=== PATIENT | female | born 1950 | race Caucasian/White ===

== ENCOUNTER 2017-11-20 12:14 | Outpatient (CLI) | payer OTHER | END 2017-11-20 12:15 | disposition home or self-care (01) | LOC: BICMAMMO 12:14 | PROVIDERS: ATTEND Family Medicine | DX: Z12.31 Encounter for screening mammogram for malignant neoplasm of breast (principal); Z80.3 Family history of malignant neoplasm of breast; Z85.820 Personal history of malignant melanoma of skin | CPT/HCPCS: 77063; 77067 ==

== ENCOUNTER 2018-11-21 10:23 | Outpatient (CLI) | payer OTHER ==
--- NOTE | 2018-11-21 11:09 | MMO ---
Bilateral MAMMO Bilat Screen [facility]. CLINICAL HISTORY: Patient is 68 years old and is seen for screening. The patient has the following family history of breast cancer: paternal aunt. The patient has a history of melanoma at age 34. The patient has a history of right Excisional Biopsy in 1985 - Benign. VIEWS: The views performed were: bilateral craniocaudal with tomosynthesis; bilateral mediolateral oblique; and bilateral mediolateral oblique with tomosynthesis. FILMS COMPARED: The present examination has been compared to prior imaging studies performed at [facility] on 05/30/2014, 08/11/2015, 09/05/2016 and 11/21/2017. MAMMOGRAM FINDINGS: The breasts are almost entirely fat. There are no suspicious masses, suspicious calcifications, or new areas of architectural distortion. IMPRESSION: THERE IS NO MAMMOGRAPHIC EVIDENCE OF MALIGNANCY. A ROUTINE FOLLOW-UP MAMMOGRAM IN 1 YEAR IS RECOMMENDED. THE RESULTS OF THIS EXAM WERE SENT TO THE PATIENT. ACR BI-RADS Category 1 - Negative MAMMOGRAPHY NOTE: 1. A negative mammogram report should not delay a biopsy if a dominant of clinically suspicious mass is present. 2. Approximately 10% to 15% of breast cancers are not detected by mammography. 3. Adenosis and dense breasts may obscure an underlying neoplasm. Reported by: ZACH VALDEZ MD Electonically Signed: [id number]
== END 2018-11-21 10:24 | disposition home or self-care (01) ==
LOC: BICMAMMO 10:23
PROVIDERS: ATTEND Family Medicine
DX: Z12.31 Encounter for screening mammogram for malignant neoplasm of breast (principal); Z80.3 Family history of malignant neoplasm of breast
CPT/HCPCS: 77063; 77067

== ENCOUNTER 2020-04-21 13:50 | Outpatient (CLI) | payer MEDICARE ==
--- NOTE | 2020-04-21 14:25 | MMO ---
Bilateral MAMMO Bilat Screen [facility]. CLINICAL HISTORY: Patient is 69 years old and is seen for screening. The patient has the following family history of breast cancer: paternal aunt. The patient has a history of melanoma at age 34. The patient has a history of right Excisional Biopsy in 1985 - Benign. VIEWS: The views performed were: bilateral craniocaudal with tomosynthesis; bilateral mediolateral oblique with tomosynthesis; and cleavage view with tomosynthesis. FILMS COMPARED: The present examination has been compared to prior imaging studies performed at [facility] on 08/11/2015, 09/05/2016, 11/21/2017 and 11/21/2018. This study has been interpreted with the assistance of computer-aided detection. MAMMOGRAM FINDINGS: The breasts are almost entirely fat. There are benign appearing calcifications seen in the left breast. There are no suspicious masses, suspicious calcifications, or new areas of architectural distortion. IMPRESSION: THERE IS NO MAMMOGRAPHIC EVIDENCE OF MALIGNANCY. A ROUTINE FOLLOW-UP MAMMOGRAM IN 1 YEAR IS RECOMMENDED. THE RESULTS OF THIS EXAM WERE SENT TO THE PATIENT. ACR BI-RADS Category 2 - Benign finding MAMMOGRAPHY NOTE: 1. A negative mammogram report should not delay a biopsy if a dominant of clinically suspicious mass is present. 2. Approximately 10% to 15% of breast cancers are not detected by mammography. 3. Adenosis and dense breasts may obscure an underlying neoplasm. Reported by: RE KRAFT MD Electonically Signed: [id number]
== END 2020-04-21 13:51 | disposition home or self-care (01) ==
LOC: BICMAMMO 13:50
PROVIDERS: ATTEND Nurse Practitioner Family
DX: Z12.31 Encounter for screening mammogram for malignant neoplasm of breast (principal); Z85.820 Personal history of malignant melanoma of skin; Z80.3 Family history of malignant neoplasm of breast; Z91.89 Other specified personal risk factors, not elsewhere classified
CPT/HCPCS: 77063; 77067

== ENCOUNTER 2020-04-26 12:41 | Inpatient (IN) | payer MEDICARE ==
[~2020-04-26 12:41] MED LIST: Iopamidol-370 76% 500 ML 1 ML ONE
[2020-04-26] MEDS ORDERED: Acetaminophen 500 MG TAB ONE (13:08)
[2020-04-26 13:49] LABS: Hemoglobin 15.1 g/dL (12.0-16.0); Mean Corpuscular HGB CONC 33.5 g/dL (32.0-36.0); Mean Corpuscular Hemoglobin 29.2 pg (27.0-31.0); Mean Corpuscular Volume 87.3 fL (78.0-98.0); Mean Platelet Volume 8.2 fL (7.4-10.4); Platelet Count 255 thou/uL (130-400); Red Blood Cell (RBC) Count 5.18 mill/uL (4.20-5.40); White Blood Cell (WBC) Count 22.3 thou/uL (4.8-10.8)
[2020-04-26 13:53] LABS: ALT (SGPT) 22 U/L (8-55); AST (SGOT) 14 U/L (5-34); Albumin 3.9 g/dL (3.4-4.8); Alkaline Phosphatase 78 U/L (40-110); Anion Gap 15 mmol/L (10-20); BUN (Urea Nitrogen) 13 mg/dL (9.8-20.1); Bilirubin, Total 0.8 mg/dL (0.2-1.2); Calc. Creatinine Clearance 0 mL/min (70-130); Calcium 9.5 mg/dL (7.8-10.44); Carbon Dioxide 25 mmol/L (23-31); Chloride 101 mmol/L (98-107); Globulin 3.6 g/dL (2.4-3.5); Glucose 127 mg/dL (80-115); Lipase 17 U/L (8-78); Magnesium 2.2 mg/dL (1.6-2.6); Protein, Total 7.5 g/dL (6.0-8.3); Sodium 138 mmol/L (136-145)
[2020-04-26 14:03] LABS: Bilirubin Negative (Negative); Blood, Urine Trace (Negative); Glucose, Urine (Dipstick) Negative (Negative); Ketone, Urine Negative (Negative); Leukocyte Trace (Negative); Nitrite Negative (Negative); Protein, Urine (Dipstick) 30 mg/dL (Neg-Trace); Specific Gravity, Urine 1.025 (1.005-1.030)
[2020-04-26 14:11] LABS: Band 22 % (5-11); Lymphocytes 1 % (21-51); MDiff Complete? YES; Monocytes 11 % (0-10); Neutrophil 59 % (42-75); Platelet Morphology Comment Appears Adequate; Polychromasia SLIGHT = 2-3 cells (100X) (0-2/hpf); Reactive Lymphocytes 7 % (0-10)
--- NOTE | 2020-04-26 14:30 | RAD ---
EXAM: Chest one view: HISTORY: Dyspnea, cough, fever COMPARISON: 10/26/2018 FINDINGS: Heart size: Borderline heart size. Lungs: Clear of acute process. No evidence for confluent lobar pneumonia, significant pleural effusion, acute edema, or pneumothorax , or other significant acute process. IMPRESSION: No significant acute intrathoracic disease. Stable exam.
[2020-04-26 14:33] LABS: Clarity Clear (Clear)
[2020-04-26 14:39] LABS: Bacteria/HPF 1+ HPF (None Seen); RBC/HPF 0-3 HPF (0-3); Squamous Epithelial 0-3 HPF (0-3); WBC/HPF 0-3 HPF (0-3)
[2020-04-26] MEDS ORDERED: Potassium Chloride 20 MEQ TAB ONE (15:03)
[2020-04-26 15:12] LABS: SARS-CoV-2 NAA Rapid Test Not Detected (NotDetected)
--- NOTE | 2020-04-26 15:50 | CT ---
CT angiogram chest with IV contrast and 3-D imaging HISTORY: Cough. Dyspnea. Fever. FINDINGS:: There is good contrast opacification of the central pulmonary arteries and the thoracic ao rta with normal branching of the great vessels at the aortic arch. Peripheral pulmonary arteries incompletely opacified due to timing of bolus. Slightly enlarged, reactive appearing lymph nodes are scattered about the mediastinum, measuring up t o 1.9 cm the right paratracheal level and 1.8 cm at the right hilum. Dense infiltrate is present within the posterior basilar segment of the right lower lobe. Minimal ivonne ear scarring at the left lung base. No pleural fluid or pneumothorax. Small hiatal hernia. IMPRESSION : Right lower lobe pneumonia/infiltrate, with the appearance of a bacterial process rather than viral p neumonitis.
[2020-04-26] MEDS ORDERED: Cefepime 2 GM VIAL ONE (16:20)
[2020-04-26] MEDS ORDERED: Ondansetron PF 4 MG/2 ML Vial IVP PRN (16:22)
[2020-04-26] MEDS ORDERED: Guaifenesin DM 100-10/5 ML UDCUP PO PRN (16:22)
[2020-04-26] MEDS ORDERED: Ondansetron ODT 4 MG TAB PO PRN (16:22)
[2020-04-26] MEDS ORDERED: Aspirin 325 mg Enteric Coated Tablet PO SCH (16:30)
[2020-04-26] MEDS ORDERED: Vancomycin 1.5 GRAM/300 ML BAG 1.5 GM in Premix Bag 1 BAG IVPB SCH (16:30)
[2020-04-26] MEDS ORDERED: Azithromycin 500 MG in Sodium Chloride 0.9% 250 ML 250 ML IVPB SCH (17:00)
--- NOTE | 2020-04-26 17:28 | HP ---
PRIMARY CARE PHYSICIAN: Alba Rod. CHIEF COMPLAINT: Fever, cough, SOB, diarrhea. HISTORY OF PRESENT ILLNESS: The patient is a 69-year-old female with a past medical history significant for hypertension, who presents to the emergency department for the above complaint. The patient reports developing fever, T-max 102 Fahrenheit, nonproductive cough, mild shortness of breath, and intermittent diarrhea over the past 4 days. She reports that her diarrhea has improved, averaging 5 total loose stools over the past 4 days. She denies any abdominal pain, hematochezia/melena. She does report vomiting several times in the past couple of days. She denies hemoptysis. She denies any recent travel or antibiotics usage. She denies any ingestion of uncooked foods. She denies any wheezing and has no history of COPD/asthma. She has no history of DVT/PE. She is not on any hormone therapy. She does report being tested positive for COVID in October 2019. She was asymptomatic at that time. She denies any recent known COVID contacts. She denies any loss of smell or taste. She denies any body aches or general malaise. She denies any chest pain, heart palpitations, or lightheadedness. She denies any dyspnea on exertion, orthopnea, or swelling to her lower extremities. In the emergency department, the patient presented febrile with a temperature of 100.2, hypertensive, tachycardic with normal respirations and oxygen saturation. EKG sinus tachycardia, no ST elevations. D-dimer elevated at 1.90. CTA chest negative for PE. It did show right lower lobe pneumonia. Chest x-ray is negative for any acute process. Troponin indeterminate at 0.011. COVID and influenza negative. Blood and urine cultures are pending. WBCs 22.3. Lactic acid of 2.2. The patient was treated with vancomycin, cefepime and 1 L normal saline. She was given Tylenol 1 g and her potassium was replaced. PAST MEDICAL HISTORY: Hypertension. PAST SURGICAL HISTORY: 1. Bilateral total knee replacement. 2. Cholecystectomy. 3. C-spine fusion. 4. Melanoma, surgical excision. SURGICAL HISTORY: Breast biopsy. SOCIAL HISTORY: The patient lives with her family. She denies any history of illicit drug use, heavy alcohol intake or smoking. She is retired. She walks independently. FAMILY HISTORY: Contributory for [place], her brother in his 50s. ALLERGIES: NO KNOWN DRUG ALLERGIES. HOME MEDICATIONS: Lisinopril/HCTZ 20/12.5 two tabs p.o. q. day. REVIEW OF SYSTEMS: All review of systems are negative unless otherwise stated in HPI. PHYSICAL EXAMINATION: VITAL SIGNS: Temperature 100.2, blood pressure 132/61, pulse 87, respirations 19%, 94% on room air. CONSTITUTIONAL: Patient in no acute distress. Nontoxic in appearance. VITAL SIGNS: Within normal limits. HEAD: Atraumatic, normocephalic. EYES: PERRL. Extraocular muscles intact. Sclerae nonicteric. ENT: Oropharynx is clear. Uvula midline. Moist mucous membranes. No oral lesions. NECK: Full range of motion. No cervical spinous tenderness. No cervical adenopathy. RESPIRATORY/CHEST: Bilateral rales in the lower lobes. No wheezes or rhonchi. Respirations are even nonlabored. No acute distress. CARDIOVASCULAR: S1, S2 appreciated. No murmurs, rubs, or gallops. ABDOMEN: Soft, nontender, nondistended. Active bowel sounds. No guarding. No rigidity. No rebound. Negative Rovsing sign. Negative Roman sign. BACK: Full range of motion. No central spinous tenderness. No CVA tenderness. EXTREMITIES: Upper extremities are full range of motion, normal strength, sensation intact. Palpable radial pulses. Lower extremities, full range of motion. Normal strength. Sensation intact. Palpable pedal pulses, no swelling. NEUROLOGIC: GCS of 15. No focal motor deficits. PSYCHIATRIC: Denies suicidal or homicidal ideation. LABORATORY DATA AND DIAGNOSTIC STUDIES: CTA of the chest, impression, right lower lobe pneumonia/infiltrate with the appearance of bacterial process rather than a viral pneumonitis. COVID negative, influenza negative. UA, 1+ bacteria, trace leukocyte esterase, no nitrites, no pus, no epithelial cells. WBC 22.3, hemoglobin 15.1, hematocrit 45.2, platelets 255. Coags, D-dimer was 1.90. Chemistry; sodium 138, potassium 3.0, chloride 101, carbon dioxide 25, BUN 13, creatinine 0.82, glucose 127. Lactic acid 2.2, total bilirubin 0.8, AST 14, ALT 22, alkaline phosphatase 78. Initial troponin 0.011. Lactic acid 2.2. Lipase 17. Chest x-ray was negative for any acute process. IMPRESSION: 1. Right lower lobe pneumonia. 2. Sepsis. 3. Indeterminate troponin. 4. Hypokalemia. 5. Nausea, vomiting, diarrhea. 6. Hypertension, chronic. PLAN: A 69-year-old female with a past medical history of hypertension, presents for fever/cough/SOB/diarrhea. Admit to medical floor, observation status. Expected length of stay less than 2 midnights. The patient meets sepsis criteria, presenting with a heart rate of 104 and febrile. CTA positive for right lower lobe pneumonia. We will treat for community-acquired pneumonia, starting azithromycin and Rocephin. We will add guaifenesin p.r.n. for cough. Supplemental oxygen as needed. The patient did receive 1 L of normal saline in the ED and is normotensive at this time. We will not continue IV fluid resuscitation at this time. We will encourage oral intake. Blood cultures and urine cultures are pending. In terms of her indeterminate troponin, likely secondary to demand ischemia, heart score of 4. We will trend troponins. Check BNP and start aspirin at this time. We will check a fasting lipid profile. In terms of her hypokalemia, mild, presented with a potassium of 3.0. Magnesium 2.2 within normal limits. She was replaced with 60 mEq use in the emergency department. We will recheck level in the a.m. Zofran p.r.n. In terms of hypertension, chronic. The patient is normotensive at this time. She reports that she did not take her lisinopril/ hydrochlorothiazide at home for the past 2 days. She did take it this a.m. We will restart her home medications. Lovenox for deep venous thrombosis prophylaxis. No gastrointestinal prophylaxis. Code status is full code. Discussed with attending physician, Dr. Mccarthy. Job ID: [id number]
[2020-04-26 18:15] VITALS: BMI 38.9
[2020-04-26 20:17] LABS: Troponin I Less than 0.010 ng/mL (< 0.028)
[2020-04-26] MEDS: Azithromycin 500 MG in Sodium Chloride 0.9% 250 ML 250 ML IVPB SCH (20:41)
[2020-04-26 22:41] LABS: Troponin I 0.013 ng/mL (< 0.028)
[2020-04-27 07:24] LABS: Anion Gap 11 mmol/L (10-20); BUN (Urea Nitrogen) 8 mg/dL (9.8-20.1); Calc. Creatinine Clearance 143 mL/min (70-130); Calcium 8.2 mg/dL (7.8-10.44); Carbon Dioxide 27 mmol/L (23-31); Cardiac Risk 4.2 (Less than 4.5); Chloride 104 mmol/L (98-107); Cholesterol 118 mg/dl (< 200 Desired); Glucose 89 mg/dL (80-115); HDL Cholesterol 28 mg/dL (>60 Neg Risk); LDL Cholesterol, Calculated 74 mg/dL; Potassium 3.2 mmol/L (3.5-5.1); Sodium 139 mmol/L (136-145); Triglycerides 81 mg/dL (Less than 150)
[2020-04-27] MEDS ORDERED: Potassium Chloride 20 MEQ TAB PO SCH ×2 (08:00→16:00)
[2020-04-27 08:22] LABS: #Eosinphils 0.1 thou/uL (0.0-0.7); #Lymphocytes 2.2 thou/uL (1.20-3.40); #Neutrophils 8.8 thou/uL (1.40-6.50); %Basophils 0.3 % (0.0-1.0); %Eosinophils 0.7 % (0.0-10.0); %Lymphocytes 18.4 % (21.0-51.0); %Monocytes 8.5 % (0.0-10.0); %Neutrophils 72.2 % (42.0-75.0); Hemoglobin 12.5 g/dL (12.0-16.0); Mean Corpuscular Hemoglobin 29.1 pg (27.0-31.0); Mean Corpuscular Volume 88.1 fL (78.0-98.0); Platelet Count 207 thou/uL (130-400); RBC Distribution Width 11.8 % (11.5-14.5); Red Blood Cell (RBC) Count 4.29 mill/uL (4.20-5.40); White Blood Cell (WBC) Count 12.1 thou/uL (4.8-10.8)
[2020-04-27] MEDS: Lisinopril/Hydrochlorothiazide 20 mg/12.5 mg Tablet PO SCH (08:39)
[2020-04-27] MEDS: Aspirin 81 mg Enteric Coated Tablet PO SCH (08:39)
[2020-04-27] MEDS: Enoxaparin Sodium 40 MG/0.4 ML SYRINGE SC SCH (08:40)
[2020-04-27] MEDS ORDERED: FLU VACC QS2020-21(65YR UP)/PF 240 MCG/0.7 ML SYRINGE IM ONE (09:00)
--- NOTE | 2020-04-27 09:47 | PDOC.HOSPP ---
- Subjective Encounter Date: 04/27/20 Encounter Time: 09:45 Subjective: Patient seen and examined. No new complaints. No overnight events. Patient says she feels great. Denies cough, SOB, wheezing. Denies chest pain, heart palpitations, abdominal pain, N/V/D. Denies any dysuria or fever. Discussed improvement with WBC count and negative cardiac enzymes. Blood/Urine Cx pending. - Objective Vital Signs & Weight: Vital Signs (12 hours) Temp Pulse Resp BP BP Pulse Ox 04/27/20 08:39 81 04/27/20 08:11 99.0 F 81 20 134/70 96 04/27/20 00:20 98.8 F 88 20 132/84 95 Weight Weight 248 lb 14.43 oz I&O: 04/26/20 04/27/20 04/28/20 06:59 06:59 06:59 Intake Total 1000 Balance 1000 Result Diagrams: 04/27/20 06:48 04/27/20 06:48 Hospitalist ROS - Review of Systems Constitutional: denies: fever, chills Respiratory: denies: cough, shortness of breath Cardiovascular: denies: chest pain, palpitations, edema, light headedness Gastrointestinal: denies: nausea, vomiting, abdominal pain Neurological: denies: weakness All other systems reviewed; all pertinent +/- noted in HPI/Subj - Medication Medications: Active Medications Generic Name Dose Route Start Last Admin Trade Name Freq PRN Reason Stop Dose Admin Aspirin 81 mg 04/27/20 09:00 04/27/20 08:39 Aspirin 81 Mg Enteric Coated Tablet PO 81 mg DAILY SARIKA Administration Enoxaparin Sodium 40 mg 04/27/20 09:00 04/27/20 08:40 Enoxaparin Sodium 40 Mg/0.4 Ml Syringe SC 40 mg 0900 SARIKA Administration Lisinopril/HCTZ 2 tab 04/27/20 09:00 04/27/20 08:39 Lisinopril/Hydrochlorothiazide 20 Mg/12.5 Mg Tablet PO 2 tab DAILY SARIKA Administration Azithromycin 500 mg/ Sodium 250 mls @ 250 mls/hr 04/26/20 20:00 04/26/20 20:41 Chloride IVPB 250 mls 2000 SARIKA Administration Potassium Chloride 40 meq 04/27/20 08:00 04/27/20 08:39 Potassium Chloride 20 Meq Tab PO 04/27/20 10:00 40 meq NOW SARIKA Administration - Exam General Appearance: NAD, awake alert. negative: ill appearing Heart: RRR, no murmur, no gallops, no rubs, normal peripheral pulses Respiratory: CTAB, no wheezes, no rales, no ronchi, normal chest expansion, no tachypnea Gastrointestinal: soft, non-tender, normal bowel sounds, no guarding, no rigidity Psychiatric: normal affect, A&O x 3 Hosp A/P (1) Pneumonia Code(s): J18.9 - PNEUMONIA, UNSPECIFIED ORGANISM Status: Acute (2) Sepsis Code(s): A41.9 - SEPSIS, UNSPECIFIED ORGANISM Status: Acute (3) Elevated troponin Code(s): R77.8 - OTHER SPECIFIED ABNORMALITIES OF PLASMA PROTEINS Status: Acute (4) Hypokalemia Code(s): E87.6 - HYPOKALEMIA Status: Acute (5) Nausea vomiting and diarrhea Code(s): R11.2 - NAUSEA WITH VOMITING, UNSPECIFIED; R19.7 - DIARRHEA, UNSPECIFIED Status: Acute (6) HTN (hypertension) Code(s): I10 - ESSENTIAL (PRIMARY) HYPERTENSION Status: Chronic - Plan -WBC trending down from 22.3 to 12.1 -Continue Azith and rocephin IVPB -Blood/Urine CX pending -Troponins flat, did not follow physiologic pattern for ACS, non ishcemic elevation -K improved to 3.3, replace with 40mEq x 2, recheck in am - mag level WNL -N/V/D resolved.
[2020-04-27] MEDS: cefTRIAXone\\ROCEPHIN 1 GM in Sodium Chloride 0.9% 100 ML IVPB SCH (14:52)
[2020-04-27] MEDS: Acetaminophen 325 MG TAB PO PRN (16:57)
[2020-04-27] MEDS: Azithromycin 500 MG in Sodium Chloride 0.9% 250 ML 250 ML IVPB SCH (19:39)
[2020-04-28 07:18] LABS: #Basophils 0.1 thou/uL (0.0-0.2); #Eosinphils 0.1 thou/uL (0.0-0.7); #Lymphocytes 2.1 thou/uL (1.20-3.40); #Monocytes 1.2 thou/uL (0.11-0.59); %Basophils 0.6 % (0.0-1.0); %Lymphocytes 18.1 % (21.0-51.0); %Monocytes 10.3 % (0.0-10.0); %Neutrophils 70.1 % (42.0-75.0); Hemoglobin 12.8 g/dL (12.0-16.0); Mean Corpuscular HGB CONC 33.5 g/dL (32.0-36.0); Mean Corpuscular Hemoglobin 29.5 pg (27.0-31.0); Mean Corpuscular Volume 88.2 fL (78.0-98.0); Mean Platelet Volume 7.9 fL (7.4-10.4); Platelet Count 252 thou/uL (130-400); RBC Distribution Width 11.7 % (11.5-14.5); Red Blood Cell (RBC) Count 4.33 mill/uL (4.20-5.40); White Blood Cell (WBC) Count 11.4 thou/uL (4.8-10.8)
[2020-04-28 07:38] LABS: Anion Gap 14 mmol/L (10-20); BUN (Urea Nitrogen) 8 mg/dL (9.8-20.1); Calc. Creatinine Clearance 141 mL/min (70-130); Calcium 8.6 mg/dL (7.8-10.44); Carbon Dioxide 25 mmol/L (23-31); Chloride 103 mmol/L (98-107); Glucose 96 mg/dL (80-115); Potassium 4.1 mmol/L (3.5-5.1); Sodium 138 mmol/L (136-145)
[2020-04-28] MEDS: Lisinopril/Hydrochlorothiazide 20 mg/12.5 mg Tablet PO SCH (08:03)
[2020-04-28] MEDS: Aspirin 81 mg Enteric Coated Tablet PO SCH (08:03)
[2020-04-28] MEDS: Enoxaparin Sodium 40 MG/0.4 ML SYRINGE SC SCH (08:04)
--- NOTE | 2020-04-28 11:05 | PDOC.HOSPP ---
- Subjective Encounter Date: 04/28/20 Encounter Time: 11:00 Subjective: Patient states she is feeling well and denies any complaints except a cough. States the Robitussin has not helped much. It tends to be worse at night, is nonproductive and denies any associated sob. States her breathing was never an issue since before she came in. She had been sick with N/V/D which prompted her to come in to get tested for COVID. CXR was clear however CTA showed pneumonia. She denies any fevers, chills or sweats. No headaches or dizziness. Has been tolerating PO intake. No further n/v/d since admission. Has not had any dysuria. All other review of systems are negative. - Objective Vital Signs & Weight: Vital Signs (12 hours) Temp Pulse Resp BP Pulse Ox 04/28/20 08:15 99.5 F 89 20 142/62 H 95 04/28/20 08:03 90 Weight Admit Weight 248 lb 14.43 oz Weight 248 lb 14.43 oz I&O: 04/27/20 04/28/20 04/29/20 06:59 06:59 06:59 Intake Total 1000 1950 Balance 1000 1950 Result Diagrams: 04/28/20 06:59 04/28/20 06:59 Hospitalist ROS - Medication Medications: Active Medications Generic Name Dose Route Start Last Admin Trade Name Freq PRN Reason Stop Dose Admin Acetaminophen 650 mg 04/26/20 16:22 04/27/20 16:57 Acetaminophen 325 Mg Tab PO 650 mg Q4H PRN Administration Headache/Fever/Mild Pain (1-3) Aspirin 81 mg 04/27/20 09:00 04/28/20 08:03 Aspirin 81 Mg Enteric Coated Tablet PO 81 mg DAILY SARIKA Administration Enoxaparin Sodium 40 mg 04/27/20 09:00 04/28/20 08:04 Enoxaparin Sodium 40 Mg/0.4 Ml Syringe SC 40 mg 0900 SARIKA Administration Guaifenesin/Dextromethorphan 15 ml 04/26/20 16:22 04/27/20 19:38 Guaifenesin Dm 100-10/5 Ml Udcup PO 15 ml Q4H PRN Administration Cough Lisinopril/HCTZ 2 tab 04/27/20 09:00 04/28/20 08:03 Lisinopril/Hydrochlorothiazide 20 Mg/12.5 Mg Tablet PO 2 tab DAILY SARIKA Administration Ceftriaxone Sodium 1 gm/ 100 mls @ 200 mls/hr 04/27/20 15:00 04/27/20 14:52 Sodium Chloride IVPB 100 mls Q24HR SARIKA Administration Azithromycin 500 mg/ Sodium 250 mls @ 250 mls/hr 04/26/20 20:00 04/27/20 19:39 Chloride IVPB 250 mls 2000 SARIKA Administration Sodium Chloride 10 ml 04/26/20 16:22 04/27/20 19:39 Flush - Normal Saline 10 Ml Syringe IVF 10 ml PRN PRN Administration Saline Flush - Exam General Appearance: NAD, awake alert Eye: PERRL, anicteric sclera ENT: normocephalic atraumatic, no oropharyngeal lesions, moist mucosa Neck: supple, symmetric, no lymphadenopathy Heart: RRR, no murmur, no gallops, no rubs, normal peripheral pulses Respiratory: CTAB, no wheezes, no rales, no ronchi, normal chest expansion Gastrointestinal: soft (obese), non-tender, non-distended, normal bowel sounds, no guarding, no rigidity Extremities: no edema Skin: normal turgor, no lesions, no rashes Neurological: cranial nerve grossly intact, normal sensation to touch, no weakness Musculoskeletal: normal tone, normal strength, no muscle wasting Psychiatric: normal affect, normal behavior, A&O x 3 Hosp A/P (1) Pneumonia Code(s): J18.9 - PNEUMONIA, UNSPECIFIED ORGANISM Status: Acute (2) Hypokalemia Code(s): E87.6 - HYPOKALEMIA Status: Resolved (3) Nausea vomiting and diarrhea Code(s): R11.2 - NAUSEA WITH VOMITING, UNSPECIFIED; R19.7 - DIARRHEA, UNSPECIFIED Status: Resolved (4) HTN (hypertension) Code(s): I10 - ESSENTIAL (PRIMARY) HYPERTENSION Status: Chronic - Plan Continue IV antibiotics Monitor O2 sats Blood cultures pending (fever yesterday) UA/UCx negative Will add Tessalon for cough Monitor electrolytes and replace as needed Monitor BP and continue home meds DVT Prophylaxis: Lovenox CODE STATUS: FULL
[2020-04-28] MEDS: cefTRIAXone\\ROCEPHIN 1 GM in Sodium Chloride 0.9% 100 ML IVPB SCH (15:11)
[2020-04-28] MEDS: Azithromycin 500 MG in Sodium Chloride 0.9% 250 ML 250 ML IVPB SCH (19:51)
[2020-04-28] MEDS ORDERED: Benzonatate 100 MG CAP PO PRN (22:59)
[2020-04-29 07:05] LABS: #Basophils 0.1 thou/uL (0.0-0.2); #Eosinphils 0.2 thou/uL (0.0-0.7); #Lymphocytes 2.4 thou/uL (1.20-3.40); #Monocytes 1.3 thou/uL (0.11-0.59); #Neutrophils 7.3 thou/uL (1.40-6.50); %Basophils 0.7 % (0.0-1.0); %Eosinophils 1.8 % (0.0-10.0); %Lymphocytes 21.3 % (21.0-51.0); %Monocytes 11.4 % (0.0-10.0); %Neutrophils 64.8 % (42.0-75.0); Hemoglobin 12.8 g/dL (12.0-16.0); Mean Corpuscular HGB CONC 32.9 g/dL (32.0-36.0); Mean Corpuscular Volume 88.3 fL (78.0-98.0); Mean Platelet Volume 7.5 fL (7.4-10.4); Platelet Count 260 thou/uL (130-400); RBC Distribution Width 11.8 % (11.5-14.5); Red Blood Cell (RBC) Count 4.39 mill/uL (4.20-5.40); White Blood Cell (WBC) Count 11.2 thou/uL (4.8-10.8)
[2020-04-29 07:19] LABS: Lactic Acid 0.7 mmol/L (0.5-2.2)
[2020-04-29 07:22] LABS: ALT (SGPT) 23 U/L (8-55); AST (SGOT) 21 U/L (5-34); Albumin 3.1 g/dL (3.4-4.8); Alkaline Phosphatase 69 U/L (40-110); Anion Gap 14 mmol/L (10-20); BUN (Urea Nitrogen) 8 mg/dL (9.8-20.1); Bilirubin, Total 0.5 mg/dL (0.2-1.2); CRP (Inflammatory) 9.42 mg/dL (= or < 0.5); Calc. Creatinine Clearance 147 mL/min (70-130); Calcium 8.4 mg/dL (7.8-10.44); Carbon Dioxide 27 mmol/L (23-31); Chloride 101 mmol/L (98-107); Globulin 3.1 g/dL (2.4-3.5); Glucose 92 mg/dL (80-115); Magnesium 2.1 mg/dL (1.6-2.6); Potassium 3.6 mmol/L (3.5-5.1); Protein, Total 6.2 g/dL (6.0-8.3); Sodium 138 mmol/L (136-145)
[2020-04-29] MEDS: Enoxaparin Sodium 40 MG/0.4 ML SYRINGE SC SCH (08:31)
[2020-04-29] MEDS: Aspirin 81 mg Enteric Coated Tablet PO SCH (08:32)
[2020-04-29] MEDS: Lisinopril/Hydrochlorothiazide 20 mg/12.5 mg Tablet PO SCH (08:32)
[2020-04-29] MEDS ORDERED: Lisinopril/Hydrochlorothiazide 20 mg/12.5 mg Tablet PO SCH (09:46)
[2020-04-29] MEDS: Acetaminophen 325 MG TAB PO PRN (10:45)
[2020-04-29 11:56] VITALS: BP 129/60; TEMP 98
--- NOTE | 2020-04-29 18:25 | PDOC.DS.DS ---
Provider - Provider Date of Admission: 04/28/20 11:11 Date of Discharge: 04/29/20 Admitting Provider: Lyle Mccarthy MD Primary Care Physician: [facility] Course - Hospital Course Hospital Course: Patient is a very pleasant 69-year-old female who initially presented to the hospital with fever cough. She was noted to have pneumonia to her right lower lobe. Patient was Covid positive a few months ago. Patient has been up walking around without any issues. I will discharge her home to follow-up with her primary care doctor Resuscitation Status: 04/26/20 16:22 Resuscitation Status Routine Co-Sign Provider: Resuscitation Status: FULL: Full Resuscitation Discussed with: patient - Labs Lab Results: 04/29/20 06:47 04/29/20 06:47 Abnormal Lab Results - Last 48 hrs 04/28/20 06:59: BUN 8 L 04/28/20 06:59: WBC 11.4 H, Lymphocytes % 18.1 L, Monocytes % 10.3 H, Ne utrophils # 8.0 H, Monocytes # 1.2 H 04/29/20 06:47: BUN 8 L, C-Reactive Protein 9.42 H, Albumin 3.1 L, Albumin/Globulin Ratio 1.0 L 04/29/20 06:47: WBC 11.2 H, Monocytes % 11.4 H, Neutrophils # 7.3 H, Monocytes # 1.3 H Microbiology - Entire Visit 04/26/20 14:51 Venous blood - Right Hand Blood Culture - Preliminary NO GROWTH AT 48 HOURS 04/26/20 14:51 Venous blood - Left Arm Blood Culture - Preliminary NO GROWTH AT 48 HOURS 04/26/20 13:22 Urine voided Urine Culture - Final - Physical Exam Vitals: Vital Signs (12 hours) Temp Pulse Resp BP Pulse Ox 04/29/20 11:55 98.0 F 80 20 129/60 95 04/29/20 08:32 83 04/29/20 08:00 99.1 F 83 20 176/77 H 92 L Weight Admit Weight 248 lb 14.43 oz Weight 248 lb 14.43 oz Physical Exam: The patient was seen and examined on the day of discharge. Problem - Discharge Plan Assessment: 1. Community-acquired pneumonia #2 shortness of breath Plan - Discharge Medications Prescriptions: Saccharomyces boulardii [Florastor] 250 mg PO DAILY #30 cap Levofloxacin [Levaquin] 750 mg PO DAILY #13 tab Home Medications: Medication Instructions Recorded Confirmed Type Cyanocobalamin/Folic AC/Vit B6 1 tab PO DAILY 04/26/20 04/26/20 History [Folplex 2.2] Lisinopril/Hydrochlorothiazide 1 tab PO DAILY 04/26/20 04/26/20 History [Lisinopril-Hctz 20-12.5 mg Tab] Levofloxacin [Levaquin] 750 mg PO DAILY #13 tab 04/29/20 Rx Saccharomyces boulardii [Florastor] 250 mg PO DAILY #30 cap 04/29/20 Rx Allergies: No Known Drug Allergies Allergy (Verified 04/27/20 18:56) PER ER RECORDS - Discharge Instructions Discharge Instructions:: follow up with your primary care doctor. Activity:: Activity as Tolerated Nourishment:: Heart Healthy Diet - Follow up Plan Referrals: [facility] [Primary Care Provider] - (follow up with PCP within one week) Disposition: HOME Quality - Care Measures CORE MEASURES:: N/A
[2020-04-30] MEDS ORDERED: Stress 600 With Zinc 1 TAB PO SCH (09:00)
== END 2020-04-29 13:15 | disposition home or self-care (01) | DRG 871 ==
LOC: ERS 12:41 → 3SE 15:52 → OBSVTOIN 04-28 11:11
PROVIDERS: ADMIT Internal Medicine; ATTEND Internal Medicine
DX: A41.9 Sepsis, unspecified organism (principal); J18.9 Pneumonia, unspecified organism; I24.8 Other forms of acute ischemic heart disease; I10 Essential (primary) hypertension; Z79.899 Other long term (current) drug therapy; Z98.890 Other specified postprocedural states; Z90.49 Acquired absence of other specified parts of digestive tract; Z96.653 Presence of artificial knee joint, bilateral; Z20.822 Contact with and (suspected) exposure to COVID-19; Z86.16 Personal history of COVID-19
CPT/HCPCS: 0240U; 36415; 71045; 71275; 80048; 80053; 80061; 81003; 81015; 83605; 83690; 83735; 83880; 84443; 84484; 85025; 85379; 86140; 87040; 87086; 90471; 90662; 90732; 93005; 96365; 96366; 96367; 96372; 96375; G0008; G0009; G0378; J0456; J0692; J0696; J1650; J3370; J3490; J7050; Q9967

== ENCOUNTER 2020-08-22 12:39 | Inpatient (IN) | payer MEDICARE ==
[2020-08-22] MEDS ORDERED: Pantoprazole 40 MG VIAL ONE (13:27)
[2020-08-22 13:56] LABS: Hemoglobin 14.1 g/dL (12.0-16.0); Mean Corpuscular HGB CONC 35.7 g/dL (32.0-36.0); Mean Corpuscular Hemoglobin 30.3 pg (27.0-31.0); Mean Platelet Volume 10.2 fL (7.4-10.4); Platelet Count 101 thou/uL (130-400); RBC Distribution Width 12.1 % (11.5-14.5); Red Blood Cell (RBC) Count 4.65 mill/uL (4.20-5.40); White Blood Cell (WBC) Count 5.5 thou/uL (4.8-10.8)
[2020-08-22 14:13] LABS: Band 26 % (5-11); Eosinophils 1 % (0-10); Lymphocytes 17 % (21-51); MDiff Complete? YES; Metamyelocyte 1 % (0-0); Monocytes 10 % (0-10); Neutrophil 41 % (42-75); Platelet Morphology Comment Appears Decreased; RBC Morphology Normal; Reactive Lymphocytes 3 % (0-10)
[2020-08-22 14:15] LABS: ALT (SGPT) 38 U/L (8-55); AST (SGOT) 48 U/L (5-34); Albumin 3.3 g/dL (3.4-4.8); Alkaline Phosphatase 69 U/L (40-110); Anion Gap 11 mmol/L (10-20); BUN (Urea Nitrogen) 11 mg/dL (9.8-20.1); Bilirubin, Total 0.7 mg/dL (0.2-1.2); CK (CPK) 52 U/L (29-168); Calc. Creatinine Clearance 0 mL/min (70-130); Calcium 8.4 mg/dL (7.8-10.44); Carbon Dioxide 27 mmol/L (23-31); Chloride 104 mmol/L (98-107); Globulin 2.5 g/dL (2.4-3.5); Glucose 107 mg/dL (80-115); Lipase 30 U/L (8-78); Potassium 3.3 mmol/L (3.5-5.1); Protein, Total 5.8 g/dL (5.8-8.1); Sodium 139 mmol/L (136-145)
[2020-08-22 14:18] LABS: CKMB 0.5 ng/mL (0-6.6)
[2020-08-22 15:35] LABS: Bacteria/HPF None Seen HPF (None Seen); Bilirubin Negative (Negative); Blood, Urine 1+ (Negative); Clarity Clear (Clear); Glucose, Urine (Dipstick) Normal (Negative); Ketone, Urine Negative (Negative); Leukocyte Negative Leu/uL (Negative); Mucous/LPF 1+ LPF (<2+); Nitrite Negative (Negative); Protein, Urine (Dipstick) 20 mg/dL (Neg-Trace); RBC/HPF 0-3 HPF (0-3); Specific Gravity, Urine 1.018 (1.002-1.036); Urobilinogen Normal mg/dL (Less than 2)
[2020-08-22] MEDS ORDERED: Cefepime 2 GM VIAL ONE (15:54)
[2020-08-22] MEDS ORDERED: Potassium Chloride 20 MEQ TAB ONE (16:27)
[2020-08-22] MEDS ORDERED: Vancomycin 1 GM/200 ML BAG ONE (16:50)
[2020-08-22] MEDS ORDERED: Guaifenesin DM 100-10/5 ML UDCUP PO PRN (17:40)
[2020-08-22] MEDS ORDERED: Ondansetron ODT 4 MG TAB PO PRN (17:40)
[2020-08-22] MEDS ORDERED: Ondansetron PF 4 MG/2 ML Vial IVP PRN (17:40)
[2020-08-22] MEDS ORDERED: Acetaminophen 650 MG Suppository PR PRN (17:40)
[2020-08-22 18:30] VITALS: BMI 39.1
[2020-08-22 19:33] LABS: Troponin I 0.015 ng/mL (< 0.028)
[2020-08-22] MEDS: Acetaminophen 325 MG TAB PO PRN (19:50)
[2020-08-22] MEDS ORDERED: Vancomycin 1 GM in Premix Bag 1 BAG IVPB SCH (20:00)
[2020-08-22 21:19] LABS: Troponin I 0.012 ng/mL (< 0.028)
[2020-08-23 00:31] LABS: SARS-CoV-2 PCR by NAA Not Detected (NotDetected)
[2020-08-23] MEDS: Cefepime 2 GM in Sodium Chloride 0.9% 100 ML IVPB SCH ×2 (04:10→17:16)
[2020-08-23 06:08] LABS: Anion Gap 11 mmol/L (10-20); BUN (Urea Nitrogen) 17 mg/dL (9.8-20.1); Calc. Creatinine Clearance 92 mL/min (70-130); Carbon Dioxide 23 mmol/L (23-31); Chloride 106 mmol/L (98-107); Glucose 100 mg/dL (80-115); Potassium 3.6 mmol/L (3.5-5.1); Sodium 136 mmol/L (136-145)
[2020-08-23 06:21] LABS: Band 19 % (5-11); Eosinophils 1 % (0-10); Lymphocytes 19 % (21-51); MDiff Complete? YES; Mean Corpuscular HGB CONC 34.4 g/dL (32.0-36.0); Mean Corpuscular Hemoglobin 29.3 pg (27.0-31.0); Mean Corpuscular Volume 85.3 fL (78.0-98.0); Mean Platelet Volume 11.8 fL (7.4-10.4); Monocytes 9 % (0-10); Neutrophil 40 % (42-75); Platelet Count 73 thou/uL (130-400); Platelet Morphology Comment Appears Decreased; RBC Distribution Width 12.1 % (11.5-14.5); Reactive Lymphocytes 12 % (0-10); Red Blood Cell (RBC) Count 4.11 mill/uL (4.20-5.40)
[2020-08-23] MEDS: Vancomycin 1 GM in Premix Bag 1 BAG IVPB SCH ×2 (08:39→20:01)
[2020-08-23] MEDS: Saccharomyces boulardii 250 MG CAP PO SCH (08:39)
[2020-08-23] MEDS: Lisinopril/Hydrochlorothiazide 20 mg/12.5 mg Tablet PO SCH (08:40)
[2020-08-23] MEDS ORDERED: Enoxaparin Sodium 40 MG/0.4 ML SYRINGE SC SCH (09:00)
[2020-08-23] MEDS ORDERED: Lisinopril/Hydrochlorothiazide 20 mg/12.5 mg Tablet PO SCH (09:00)
[2020-08-23] MEDS: Acetaminophen 325 MG TAB PO PRN (21:31)
[2020-08-24] MEDS: Cefepime 2 GM in Sodium Chloride 0.9% 100 ML IVPB SCH ×2 (04:03→16:33)
[2020-08-24] MEDS: Acetaminophen 325 MG TAB PO PRN (07:07)
[2020-08-24] MEDS: Lisinopril/Hydrochlorothiazide 20 mg/12.5 mg Tablet PO SCH (09:25)
[2020-08-24 09:26] LABS: Vancomycin, Trough 19.8 ug/mL
[2020-08-24] MEDS: Saccharomyces boulardii 250 MG CAP PO SCH (09:26)
[2020-08-24] MEDS: Vancomycin 1 GM in Premix Bag 1 BAG IVPB SCH (12:12)
[2020-08-24 13:42] LABS: Hemoglobin 11.7 g/dL (12.0-16.0); Mean Corpuscular HGB CONC 34.3 g/dL (32.0-36.0); Mean Corpuscular Hemoglobin 29.2 pg (27.0-31.0); Mean Corpuscular Volume 84.9 fL (78.0-98.0); Mean Platelet Volume 12.7 fL (7.4-10.4); Platelet Count 79 thou/uL (130-400); RBC Distribution Width 11.9 % (11.5-14.5); White Blood Cell (WBC) Count 9.1 thou/uL (4.8-10.8)
[2020-08-24 13:56] LABS: Anion Gap 12 mmol/L (10-20); BUN (Urea Nitrogen) 21 mg/dL (9.8-20.1); Calc. Creatinine Clearance 71 mL/min (70-130); Calcium 8.4 mg/dL (7.8-10.44); Carbon Dioxide 23 mmol/L (23-31); Chloride 107 mmol/L (98-107); Glucose 123 mg/dL (80-115); Potassium 3.5 mmol/L (3.5-5.1); Sodium 138 mmol/L (136-145)
[2020-08-24 14:29] LABS: Band 10 % (5-11); Eosinophils 1 % (0-10); Large Platelets SLIGHT; Lymphocytes 49 % (21-51); MDiff Complete? YES; Monocytes 10 % (0-10); Neutrophil 26 % (42-75); Platelet Morphology Comment Appears Decreased; Polychromasia SLIGHT = 2-3 cells (100X) (0-2/hpf); Reactive Lymphocytes 4 % (0-10)
[2020-08-24] MEDS ORDERED: Sodium Chloride 0.9% 1,000 ML IV SCH (14:30)
[2020-08-24 16:08] VITALS: BP 143/82; TEMP 98.3
== END 2020-08-24 19:50 | disposition home or self-care (01) | DRG 866 ==
LOC: ERS 12:39 → T4-B 15:45
PROVIDERS: ADMIT Family Medicine; ATTEND Hospitalist
DX: B34.9 Viral infection, unspecified (principal); Z20.822 Contact with and (suspected) exposure to COVID-19; D69.6 Thrombocytopenia, unspecified; I10 Essential (primary) hypertension; E87.6 Hypokalemia; Z96.653 Presence of artificial knee joint, bilateral; Z90.49 Acquired absence of other specified parts of digestive tract; Z79.899 Other long term (current) drug therapy; Z85.820 Personal history of malignant melanoma of skin; Z98.1 Arthrodesis status
CPT/HCPCS: 36415; 36416; 71045; 71275; 80048; 80053; 80202; 81003; 81015; 82550; 82553; 83605; 83690; 83735; 83880; 84145; 84484; 85025; 85379; 87040; 87086; 87633; 87635; 93005; 96365; 96375; C9113; J0692; J3370; J3490; Q9967; U0003; U0005

== ENCOUNTER 2020-12-29 10:25 | Outpatient (CLI) | payer MEDICARE | END 2020-12-29 10:26 | disposition home or self-care (01) | LOC: BICCT 10:25 | PROVIDERS: ATTEND Internal Medicine Critical Care Medicine | DX: J18.9 Pneumonia, unspecified organism (principal); R91.1 Solitary pulmonary nodule | CPT/HCPCS: 71250 ==

== ENCOUNTER 2021-05-05 10:59 | Outpatient (CLI) | payer MEDICARE | END 2021-05-05 11:00 | disposition home or self-care (01) | LOC: BICMAMMO 10:59 | PROVIDERS: ATTEND Nurse Practitioner Family | DX: Z12.31 Encounter for screening mammogram for malignant neoplasm of breast (principal); Z91.89 Other specified personal risk factors, not elsewhere classified; Z85.820 Personal history of malignant melanoma of skin; Z80.3 Family history of malignant neoplasm of breast | CPT/HCPCS: 77063; 77067 ==

== ENCOUNTER 2021-12-28 08:33 | Outpatient (CLI) | payer MEDICARE | END 2021-12-28 08:34 | disposition home or self-care (01) | LOC: BICCT 08:33 | PROVIDERS: ATTEND Internal Medicine Critical Care Medicine | DX: J16.8 Pneumonia due to other specified infectious organisms (principal) | CPT/HCPCS: 71250 ==

== ENCOUNTER 2022-03-08 09:48 | Outpatient (CLI) | payer MEDICARE | END 2022-03-08 09:49 | disposition home or self-care (01) | LOC: RAD-FRANK 09:48 | PROVIDERS: ATTEND Nurse Practitioner Family | DX: R05.2 Subacute cough (principal); M47.812 Spondylosis without myelopathy or radiculopathy, cervical region | CPT/HCPCS: 71046; 72040 ==

== ENCOUNTER 2022-08-05 11:40 | Outpatient (CLI) | payer MEDICARE | END 2022-08-05 11:41 | disposition home or self-care (01) | LOC: SCSMRI 11:40 | PROVIDERS: ATTEND Nurse Practitioner Family | DX: M47.22 Other spondylosis with radiculopathy, cervical region (principal); M47.23 Other spondylosis with radiculopathy, cervicothoracic region | CPT/HCPCS: 72141 ==

== ENCOUNTER 2022-11-21 15:14 | Outpatient (CLI) | payer MEDICARE | END 2022-11-21 15:15 | disposition home or self-care (01) | LOC: BICCT 15:14 | PROVIDERS: ATTEND Nurse Practitioner Family | DX: G44.001 Cluster headache syndrome, unspecified, intractable (principal); I10 Essential (primary) hypertension | CPT/HCPCS: 70450 ==

== ENCOUNTER 2024-06-18 14:26 | Outpatient (CLI) | payer MEDICARE | END 2024-06-18 14:27 | disposition home or self-care (01) | LOC: BICULT 14:26 | PROVIDERS: ATTEND Nurse Practitioner Family | DX: E04.1 Nontoxic single thyroid nodule (principal) | CPT/HCPCS: 76536 ==